=== PATIENT | female | born 1960 | race Caucasian/White ===

== ENCOUNTER 2022-03-10 21:09 | Emergency (ER) | payer OTHER ==
[~2022-03-10] VITALS: Ht 165.1 cm; Wt 64.9 kg
[2022-03-10] MEDS ORDERED: CYCLOBENZAPRINE HCL 10 MG TABLET PO ONE (21:15)
[2022-03-10] MEDS ORDERED: LIDOCAINE 5% PATCH TD ONE ×2 (21:15→21:22)
[2022-03-10] MEDS ORDERED: HYDROCODONE/APAP 5-325MG TABLET PO ONE (21:15)
--- NOTE | 2022-03-10 21:20 | NUR ---
Pt. BIB by [facility] [id number] for mechanical fall at home. Pt states she missed a step going downt the stairs and fell on left knee. Pt. c/o of left knee 7/10 pain, right groin pain rating 8/10. Pt. right elbow is bruised, currently denies pain. Pt. denies change in LOC. denies SOB and n/v.
[2022-03-10] MEDS ORDERED: SERT25TA PO (21:22)
[2022-03-10] MEDS ORDERED: CYCLOBENZAPRINE HCL 10 MG TABLET ONE (21:23)
[2022-03-10] MEDS ORDERED: HYDROCODONE/APAP 5-325MG TABLET ONE (21:23)
--- NOTE | 2022-03-10 23:54 | NUR ---
XRAY at bedside
[2022-03-11] MEDS ORDERED: HYDROCODONE/APAP 5-325MG TABLET PO ONE ×2 (04:00→05:00)
[2022-03-11] MEDS ORDERED: HYDROCODONE/APAP 5-325MG TABLET ONE (04:12)
[2022-03-11] MEDS ORDERED: CYCL7.5T17 PO (04:32)
[2022-03-11] MEDS ORDERED: HYDR-3980 PO (04:34)
--- NOTE | 2022-03-11 04:45 | NUR ---
Patient placed left knee immobilizer and educated on the usage of crutches.
--- NOTE | 2022-03-11 04:50 | NUR ---
Dr. Lloyd spoke to pt. about hospital admission. Patient refused.
[2022-03-11] MEDS ORDERED: CYCLOBENZAPRINE HCL 10 MG TABLET PO ONE (05:00)
--- NOTE | 2022-03-11 05:00 | NUR ---
Patient discharged to home in stable condition. Written and verbal after care instructions given. Patient verbalizes understanding of instructions. Stressed follow up or return to ER for worsening s/s.
[2022-03-11 05:07] VITALS: BP 125/61
== END 2022-03-11 05:00 | disposition home or self-care (01) ==
LOC: ER 21:09
DX: S82.002A Unspecified fracture of left patella, initial encounter for closed fracture (principal); S72.114A Nondisplaced fracture of greater trochanter of right femur, initial encounter for closed fracture; W10.9XXA Fall (on) (from) unspecified stairs and steps, initial encounter; Y92.89 Other specified places as the place of occurrence of the external cause; M25.551 Pain in right hip; T14.8XXA Other injury of unspecified body region, initial encounter; Z96.642 Presence of left artificial hip joint; M16.9 Osteoarthritis of hip, unspecified; F41.9 Anxiety disorder, unspecified; Z79.899 Other long term (current) drug therapy
CPT/HCPCS: 72192; 73521; 73551; 73562; A4663